=== PATIENT | female | born 1960 | race African-American/Black ===

== ENCOUNTER 2017-01-08 18:34 | Emergency (ER) | payer MEDICAID ==
[~2017-01-08] VITALS: Ht 157.5 cm; Wt 150.0 kg
[2017-01-08] MEDS ORDERED: SODIUM CHLORIDE 0.9% 1,000 ML IV SCH (18:56)
[2017-01-08] MEDS ORDERED: DIPHENHYDRAMINE 50MG CAPSULE PO ONE (19:00)
[2017-01-08] MEDS ORDERED: FAMOTIDINE 20MG/2ML VIAL IV ONE (19:00)
[2017-01-08] MEDS ORDERED: METHYLPREDNISOLONE SOD SUCC 125 MG/2 ML VIAL IV ONE (19:00)
[2017-01-08 22:33] VITALS: BP 122/77
== END 2017-01-08 23:02 | disposition home or self-care (01) ==
LOC: ER 20:08
DX: T78.3XXA Angioneurotic edema, initial encounter (principal); Y92.89 Other specified places as the place of occurrence of the external cause; I10 Essential (primary) hypertension; K21.9 Gastro-esophageal reflux disease without esophagitis; M19.90 Unspecified osteoarthritis, unspecified site; Z79.899 Other long term (current) drug therapy; F17.210 Nicotine dependence, cigarettes, uncomplicated; K50.90 Crohn's disease, unspecified, without complications; Z88.5 Allergy status to narcotic agent; Z91.018 Allergy to other foods; Z90.710 Acquired absence of both cervix and uterus
CPT/HCPCS: 96361; 96374; 96375; 99285; J2930; J3490; J7030; Z7610; Q0163

== ENCOUNTER 2022-07-06 08:59 | Emergency (ER) | payer MEDICAID ==
[~2022-07-06] VITALS: Ht 167.6 cm; Wt 81.0 kg
[2022-07-06 10:06] VITALS: BP 174/109
[2022-07-06] MEDS ORDERED: GENT5DRO5 RIGHTEYE (10:24)
[2022-07-06] MEDS ORDERED: GENT3.5O4 OP (10:24)
== END 2022-07-06 11:13 | disposition home or self-care (01) ==
LOC: ER 08:59
DX: Z53.21 Procedure and treatment not carried out due to patient leaving prior to being seen by health care provider (principal)

== ENCOUNTER 2023-10-12 15:21 | Emergency (ER) | payer MEDICAID ==
[~2023-10-12] VITALS: Ht 160 cm; Wt 139.0 kg
[~2023-10-12 15:21] MED LIST: GENT3.5O4 OP; GENT5DRO RIGHTEYE
[2023-10-12 15:34] VITALS: O2SAT 98
[2023-10-12] MEDS ORDERED: PREDNISONE 20MG TABLET PO ONE (15:45)
[2023-10-12] MEDS ORDERED: FAMO40TA70 MT (15:56)
[2023-10-12] MEDS ORDERED: P20 MT ×3 (15:56→18:08)
[2023-10-12] MEDS ORDERED: FAMOTIDINE 20MG TABLET PO NR (17:07)
[2023-10-12 17:20] VITALS: BP 156/89; PULSE 85; RESP 16; TEMP 98.6
[2023-10-12] MEDS ORDERED: FAMOTIDINE 20MG TABLET PO SCH (21:00)
== END 2023-10-12 17:23 | disposition home or self-care (01) ==
LOC: ER 15:21
DX: T78.40XA Allergy, unspecified, initial encounter (principal); I10 Essential (primary) hypertension; Z88.5 Allergy status to narcotic agent; Z98.890 Other specified postprocedural states; X58.XXXA Exposure to other specified factors, initial encounter
CPT/HCPCS: 99283; J7512

== ENCOUNTER 2024-10-18 09:07 | Emergency (ER) | payer MEDICAID ==
[~2024-10-18] VITALS: Ht 165.1 cm; Wt 103.0 kg
[~2024-10-18 09:07] MED LIST changes: +FAMO40TA70 MT; -GENT5DRO RIGHTEYE; +GENT5DRO38 RIGHTEYE; +P20 MT
[2024-10-18 09:10] VITALS: BP 166/85; PULSE 120; RESP 18; TEMP 98.2; O2SAT 97; O2SAT 98
[2024-10-18] MEDS ORDERED: ERYTHROMYCIN BASE 0.5% OPHTH OINT 3.5GM RIGHTEYE ONE (10:00)
[2024-10-18] MEDS ORDERED: ERYT1OIN6 EACHEYE (10:09)
== END 2024-10-18 10:15 | disposition left against medical advice (07) ==
LOC: ER 09:07
DX: H01.009 Unspecified blepharitis unspecified eye, unspecified eyelid (principal); H05.011 Cellulitis of right orbit; K21.9 Gastro-esophageal reflux disease without esophagitis; I10 Essential (primary) hypertension; Z88.5 Allergy status to narcotic agent; Z88.6 Allergy status to analgesic agent; Z90.710 Acquired absence of both cervix and uterus; Z79.899 Other long term (current) drug therapy
CPT/HCPCS: 99283